=== PATIENT | female | born 1955 | race Caucasian/White ===

== ENCOUNTER 2024-09-15 17:45 | Emergency (ER) | payer MEDICARE, BC, SELFPAY ==
[2024-09-15] VITALS (8 sets, daily range): BP systolic 100–130; BP diastolic 49–92; PULSE 73–87; BMI 40.3
[2024-09-15 18:05] LABS: % Basophils 0.5 % (0-2); % Eosinophils 1.7 % (0-6); % Immature Granulocytes 0.4 % (0-0.5); % Lymphocytes 20.4 % (20.5-51.1); % Monocytes 6.8 % (1.7-9.3); % Neutrophils 70.2 % (42.2-75.2); Absolute Basophils 0.1 10^3/uL (0-0.2); Absolute Eosinophils 0.2 10^3/uL (0-0.7); Absolute Immature Granulocytes 0.1 10^3/uL (0-0.05); Absolute Lymphocytes 2.5 10^3/uL (1.2-3.4); Absolute Monocytes 0.8 10^3/uL (0.1-0.6); Absolute Neutrophils 8.6 10^3/uL (1.4-6.5); Hematocrit 31.7 % (37.0-47.0); Mean Corp Hgb Conc. 34.7 g/dL (33.0-37.0); Mean Corpuscular Hgb 30.6 pg (27.0-31.0); Mean Corpuscular Volume 88.3 fL (81.0-99.0); Mean Platelet Volume 9.8 fL (7.4-10.4); Nucleated Red Blood Cells % 0 %; Platelet Count 343 10^3/uL (130-400); Red Blood Cell Count 3.59 10^6/uL (4.20-5.40); Red Cell Dist. Width 13.5 % (11.5-14.5); White Blood Cell Count 12.3 10^3/uL (4.8-10.8)
[2024-09-15 18:19] LABS: ALT (SGPT) 12 U/L (0-35); AST (SGOT) 14 U/L (14-36); Albumin 3.8 g/dl (3.5-5.0); Alkaline Phosphatase 120 U/L (38-126); Blood Urea Nitrogen 25 mg/dl (7-17); Calcium 9.2 mg/dl (8.4-10.2); Carbon Dioxide 28 mmol/L (22-30); Chloride 95 mmol/L (98-107); Estimated Creatinine Clearance 66 ml/min; Glucose 143 mg/dl (70-99); Sodium 134 mmol/L (135-145); Total Bilirubin 1.4 mg/dl (0.2-1.3); Total Protein 6.3 g/dl (6.3-8.2); eGFR > 60.00
--- NOTE | 2024-09-15 18:34 | ED.GENMED ---
History of Present Illness
General
Chief Complaint: Fainting/Passed Out
Source: patient
Exam Limitations: none
Time Seen by Provider: 09/15/24 18:32
Nursing documentation reviewed up to this point in time: agreed with
History of Present Illness
History of Present Illness:
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 States she had just finished bike, balance board, and while doing standing leg stretches, got dizzy, said 'I gotta sit
down,' Sat down and next thing she knew people were calling her name, she came to and then went out again, both times for less than 30 seconds per .
She had similar near syncope last week at P/T, thought is was from OxyContin and hasn't taken any since. Did eat prior to P/T.
4 days ago saw ortho, stopped Celebrex d/t reflux, nausea, retching, 'stomach didn't feel good.' Denies any significant pain prior to incident.
Past History
Past History
ED Past Medical History: GERD, HTN and Hypercholesterolemia
ED Past Surgical History: Cholecystectomy and Orthopedic (R knee replaced 08/31/24)
Social History
Tobacco: Non-smoker
Alcohol: None
Personal:
Living: with family
Review of Systems
Review of Systems
Allergies reviewed?: Yes
All Other Systems: ROS reviewed and negative except as documented in HPI and ROS
Constitutional: Denies fever or fatigue
Respiratory: Denies trouble breathing
Cardiac: Reports syncope; Denies chest pain, diaphoresis or palpitations
ABD/GI: Denies abdominal pain, nausea, vomiting, diarrhea or anorexia
: Denies dysuria, frequency, difficulty voiding or urgency
Musculoskeletal: Reports no symptoms
Skin: Reports no symptoms
Neurological: Reports no symptoms
Phy Exam
Physical Exam
Physical Exam:
GENERAL: No acute distress. A&Ox3.
CONSTITUTIONAL: Afebrile.
EYES: clear, conjunctivae normal
ENMT: moist mucus membranes, Pharynx nl
RESPIRATORY: Regular respirations, nonlabored, lungs clear.
CARDIOVASCULAR: Regular rate and rhythm, no murmurs, no rubs.
GI: Soft, nontender, normal BS
MUSCULOSKELETAL: Moves with ease. Well perfused.
SKIN: Warm, dry, pink
PSYCH: Normal mood and affect. Well kept, interactive and appropriate
NEUROLOGIC: Awake, alert and oriented. No focal neurological deficits
Course
Orders/Labs/Results
Orders:
Orders
09/15/24 17:53
Electrocardiogram (*1) Urgent
Reason for Study: Syncope
EKG- Treatment ONCE
09/15/24 17:55
Complete Blood Count/With Diff Urgent
Comprehensive Metabolic Panel Urgent
09/15/24 18:32
Orthostatic VS- Treatment ONCE
09/15/24 18:33
Potassium Chloride [KCl] 40 meq PO NOW STA
09/15/24 18:51
COVID-19 Antigen Urgent
Source: Nasal Swab
09/15/24 19:07
Potassium Chloride 10% Elixir [KCl Elixir] 40 meq PO NOW STA
Abnormal Lab Results
09/15/24
17:55
WBC 12.3 H 10^3/uL
(4.8-10.8)
RBC 3.59 L 10^6/uL
(4.20-5.40)
Hgb 11.0 L g/dL
(12.0-16.0)
Hct 31.7 L %
(37.0-47.0)
Abs Immat Gran (auto) 0.1 H 10^3/uL
(0-0.05)
Absolute Neuts (auto) 8.6 H 10^3/uL
(1.4-6.5)
Absolute Monos (auto) 0.8 H 10^3/uL
(0.1-0.6)
Lymphocytes % 20.4 L %
(20.5-51.1)
Sodium 134 L mmol/L
(135-145)
Potassium 3.0 L mmol/L
(3.5-5.1)
Chloride 95 L mmol/L
(98-107)
BUN 25 H mg/dl
(7-17)
Glucose 143 H mg/dl
(70-99)
Total Bilirubin 1.4 H mg/dl
(0.2-1.3)
09/15/24 17:55
09/15/24 17:55
Vital Signs
Initial and Last Documented VS:
Initial Vital Signs
Temp Pulse Resp BP Pulse Ox
98.3 F 73 14 127/53 99
09/15/24 17:47 09/15/24 17:47 09/15/24 17:47 09/15/24 17:47 09/15/24 17:47
Last Documented Vital Signs
Temp Pulse Resp BP Pulse Ox
98.3 F 75 19 100/62 99
09/15/24 17:47 09/15/24 19:51 09/15/24 19:51 09/15/24 19:51 09/15/24 18:44
MDM/Problems Addressed
Differential Diagnosis Includes:
dehydration, hypoglycemia, vasovagal, orthostatic hypotension
MDM/Problems Addressed:
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 States she had just finished bike, balance board, and while doing standing leg stretches, got dizzy, said 'I gotta sit
down,' Sat down and next thing she knew people were calling her name, she came to and then went out again, both times for less than 30 seconds per .
She had similar near syncope last week at P/T, thought is was from OxyContin and hasn't taken any since. Did eat prior to P/T.
4 days ago saw ortho, stopped Celebrex d/t reflux, nausea, retching, 'stomach didn't feel good.' Denies any significant pain prior to incident.
Afebrile, NAD, EKG: NSR
6:45 p.m.
CBC mild leukocytosis otherwise normal
CMP: Potassium 3.0, patient with history of hypokalemia and takes potassium 10 mEq twice daily. I will give her 40 mEq here tonight and told to not take her 10 meq dose this evening
Covid neg
Orthostatics neg
Nothing in workup here to explain syncope, most likely vasovagal during physical exercise with recent knee replacement and mild dehydration
*EKG
EKG Intrepretation Date: 09/15/24
Interpretation: normal
Heart Rate: 71
Rate: normal
Rhythm: sinus
[place]: normal axis
Interval: normal interval
QRS Pattern: normal QRS
Ischemia: no ischemia
*Critical Care Note
Total Time (30-74mins, 75-104mins- exclusive of procedures): Not Applicable
ED Attending Note
-
Portions of this chart may have been created with voice recognition software.� Occasional wrong word or��sound alike� substitutions may have occurred due to the inherent limitations of voice recognition software.
Discharge Plan
Departure
Patient Disposition: Home (Routine Discharge)
Date of Disposition: 09/15/24
Time of Disposition: 19:42
Patient with high blood pressure during this ER visit?: No
Condition: Good
Covid-19: Negative COVID-19
Discharge Problem:
Mild dehydration, Syncope, Chronic hypokalemia
Instructions: Syncope (Fainting) (DC), Dehydration in adults - ED discharge instructions
Referrals:
Nancy Sellers MD [Family Provider] - As needed
Activity Restrictions/Additional Instructions:
As we discussed, nothing worrisome in your workup here today.
You are mildly dehydrated, drink at least six 8 ounce glasses of water/fluid daily
Drink at least two 8 ounce glasses prior to any physical therapy
Also be sure to eat something before you go to physical therapy.
Interventions
Interventions:
*Risk Screen - Suicide Last Done: 09/15/24 17:50
*General Assessment Last Done: 09/15/24 17:50
*Neglect/Abuse Screening Last Done: 09/15/24 17:50
*ED- Fall Risk Assessment Last Done: 09/15/24 17:50
*ED COVID-19 Vaccine History Last Done: 09/15/24 17:50
*Nursing Disposition Last Done: 09/15/24 19:56
ED- Cardiac Assessment Last Done: 09/15/24 18:02
ED- Neurological Assessment Last Done: 09/15/24 18:02
Discharge Date and Time
Discharge Date/Time: 09/15/24 19:56
Print Language: COMORAN
[2024-09-15] MEDS: KCL ELIXIR 40 MEQ PO (19:09)
[2024-09-15 19:11] LABS: COVID-19 Antigen Negative (Negative)
== END 2024-09-15 19:56 | disposition home or self-care (01) ==
LOC: EMR 17:45
PROVIDERS: Registered Nurse; EMERGENCY PHYSICIAN Emergency Medicine; FAMILY PHYSICIAN Internal Medicine
DX: R55 Syncope and collapse (principal); E86.0 Dehydration; E87.6 Hypokalemia; Z11.52 Encounter for screening for COVID-19; I10 Essential (primary) hypertension; K21.9 Gastro-esophageal reflux disease without esophagitis; E78.00 Pure hypercholesterolemia, unspecified
CPT/HCPCS: 99284; 80053; 85025; 87811; 93005